=== PATIENT | male | born 1985 | race Caucasian/White ===

== ENCOUNTER 2017-07-03 08:58 | Outpatient (CLI) | payer OTHER ==
[2017-07-03] MEDS ORDERED: D50W (25GM) Syringe IV ONE ×3 (10:01→16:00)
[2017-07-03 10:17] VITALS: BP 122/68
--- NOTE | 2017-07-03 12:05 | Ultrasound Report ---
ULTRASOUND ABDOMEN INDICATION: Hematuria, dysuria. COMPARISON: 12/26/2013 CT. FINDINGS: Abdominal sonography demonstrates normal hepatic contour without focal suspicious lesions or biliary dilatation. No gallstones or pericholecystic fluid. Gallbladder wall thickness is 1.6 mm. Common bile duct is 3 mm. Homogenous spleen estimated at 9.7 cm in length. No ascites. Visualized pancreas, nonaneurysmal abdominal aorta and IVC appear within normal limits. Nonhydronephrotic bilateral kidneys, estimated at 10 x 4.6 x 4.9 cm on the right with cortical thickness of 1.3 cm while 10.8 x 4.7 x 4.5 cm on the left with cortical thickness of 1.3 cm. CONCLUSION: No acute abdominal sonographic abnormality, as described. Thank you for the opportunity to participate in this patient's care.
== END 2017-07-03 08:59 | disposition home or self-care (01) ==
LOC: US 08:58
PROVIDERS: ATTEND Family Medicine
DX: N02.9 Recurrent and persistent hematuria with unspecified morphologic changes (principal); K40.90 Unilateral inguinal hernia, without obstruction or gangrene, not specified as recurrent; R30.0 Dysuria; N48.6 Induration penis plastica; E11.9 Type 2 diabetes mellitus without complications; Z79.899 Other long term (current) drug therapy
CPT/HCPCS: 76700; 82962; 96374

== ENCOUNTER 2017-07-03 10:22 | Emergency (ER) | payer OTHER ==
--- NOTE | 2017-07-03 11:40 | Emergency Department Report ---
ED General Adult HPI - General Chief complaint: Hypoglycemia Time Seen by Provider: 07/03/17 10:55 Source: patient Mode of arrival: Stretcher Limitations: No Limitations - History of Present Illness Initial comments: 31-year-old male here with hypoglycemic episode. Patient has a dental known diabetic and was at a procedure this morning. Patient was having an ultrasound and did not eat his normal meal. He became hypoglycemic at that procedure. He was fed a full meal prior to arrival. His blood sugar here on arrival is 178. He has no complaints. -: Sudden - Related Data Home Medications Medication Instructions Recorded Confirmed Last Taken Insulin Detemir [Levemir Flexpen] 14 units SQ QHS 11/12/13 03/14/14 03/13/14 19: 30 Insulin NPH, Human [Novolin N] 15 units SQ BIDAC 11/12/13 03/14/14 03/13/14 12: 00 metFORMIN [Glucophage] 1 tab PO BID 11/12/13 03/14/14 03/13/14 18:00 Previous Rx's Medication Instructions Recorded Last Taken Type Acetaminophen/Codeine [Tylenol #3] 1 tab PO Q6H PRN #12 tab 11/12/13 03/13/14 08 :00 Rx Allergies Allergy/AdvReac Type Severity Reaction Status Date / Time aspirin Allergy Rash Verified 11/12/13 13:51 metformin Allergy Rash Verified 07/03/17 10:26 Penicillins Allergy Rash Verified 11/12/13 13:51 ED Review of Systems ROS: Stated complaint: Other details as noted in HPI Comment: All other systems reviewed and negative Constitutional: weakness Respiratory: denies: cough, orthopnea Cardiovascular: denies: chest pain, palpitations Gastrointestinal: denies: abdominal pain, nausea ED Past Medical Hx - Past Medical History Hx Diabetes: Yes - Family History Family history: no significant - Social History Smoking Status: Never Smoker - Medications Home Medications: Home Medications Medication Instructions Recorded Confirmed Last Taken Type Acetaminophen/Codeine [Tylenol #3] 1 tab PO Q6H PRN #12 tab 11/12/13 03/14/14 08:00 Rx Insulin Detemir [Levemir Flexpen] 14 units SQ QHS 11/12/13 03/14/14 03/13/14 19: 30 History Insulin NPH, Human [Novolin N] 15 units SQ BIDAC 11/12/13 03/14/14 03/13/14 12: 00 History metFORMIN [Glucophage] 1 tab PO BID 11/12/13 03/14/14 03/13/14 18:00 History ED Physical Exam - General Limitations: No Limitations General appearance: alert, in no apparent distress - Head Head exam: Present: atraumatic, normocephalic - Eye Eye exam: Present: normal appearance - ENT ENT exam: Present: mucous membranes moist - Neck Neck exam: Present: normal inspection - Respiratory Respiratory exam: Present: normal lung sounds bilaterally. Absent: respiratory distress - Cardiovascular Cardiovascular Exam: Present: regular rate, normal rhythm. Absent: systolic murmur, diastolic murmur, rubs, gallop - GI/Abdominal GI/Abdominal exam: Present: soft, normal bowel sounds - Rectal Rectal exam: Present: deferred - Extremities Exam Extremities exam: Present: normal inspection - Back Exam Back exam: Present: normal inspection - Neurological Exam Neurological exam: Present: alert, oriented X3 - Psychiatric Psychiatric exam: Present: normal affect, normal mood - Skin Skin exam: Present: warm, dry, intact, normal color. Absent: rash ED Course Vital Signs 07/03/17 07/03/17 07/03/17 10:49 10:56 12:20 Temperature 96.9 F L Pulse Rate 78 91 H Respiratory 14 18 21 Rate Blood Pressure 128/71 O2 Sat by Pulse 100 Oximetry 07/03/17 07/03/17 12:30 12:33 Temperature 97.5 F L Pulse Rate 70 Respiratory 15 Rate Blood Pressure 150/80 O2 Sat by Pulse 100 Oximetry ED Medical Decision Making - Medical Decision Making Laboratory Results - last 24 hr 07/03/17 10:54 POC Glucose 178 H 31-year-old male with recent visit for HERE WITH COMPLAINT OF HYPOGLYCEMIA. HE CURRENTLY HAS NO SYMPTOMS AND IS SYMPTOM-FREE. LIKELY DUE TO IATROGENIC ASSIST. THE PATIENT WAS NOTHING BY MOUTH OVERNIGHT AND DID NOT EAT BEFORE AN ULTRASOUND. PLAN DISCHARGE PATIENT Back to detention. Portions of this chart were dictated with dictation software. There may be dictation errors contained within this note. Critical care attestation.: If time is entered above; I have spent that time in minutes in the direct care of this critically ill patient, excluding procedure time. ED Disposition Clinical Impression: Hypoglycemia Disposition: DC-01 TO HOME OR SELFCARE Is pt being admited?: No Condition: Stable Instructions: Diabetic Hypoglycemia (ED) Referrals: PRIMARY CARE, [Primary Care Provider] - 3-5 Days
[2017-07-03 13:35] VITALS: BP 141/96
== END 2017-07-03 13:35 | disposition home or self-care (01) ==
LOC: ED 10:22
DX: E11.649 Type 2 diabetes mellitus with hypoglycemia without coma (principal); Z88.0 Allergy status to penicillin; Z88.6 Allergy status to analgesic agent
CPT/HCPCS: 82962; 99283